=== PATIENT | male | born 1940 | race Caucasian/White ===

== ENCOUNTER 2017-03-27 10:23 | Observation (INO) | payer MEDICARE, OTHER ==
[2017-03-27] MEDS ORDERED: Aspirin Low Dose CHEW TAB* 81 MG PO ONE (10:29)
--- NOTE | 2017-03-27 11:24 | RAD ---
INDICATION: Chest pain. COMPARISON: There are no prior studies available for comparison. TECHNIQUE: A portable view of the chest was obtained. FINDINGS: Cardiac and mediastinal contours appear to be within normal limits. The lungs are hyperinflated and clear. No pleural effusion is seen. IMPRESSION: NO EVIDENCE FOR ACUTE DISEASE.
[2017-03-27 11:25] LABS: Hematocrit 51 % (42-52); Hemoglobin 16.7 g/dl (14.0-18.0); Mean Corpuscular HGB Conc 33 g/dl (31-36); Mean Corpuscular Hemoglobin 28 pg (27-31); Mean Corpuscular Volume 86 fL (80-94); Mean Platelet Volume 10 um3 (7.4-10.4); Red Cell Distribution Width 13 % (10.5-15); White Blood Count 11.8 10^3/ul (3.5-10.8)
[2017-03-27 11:37] LABS: Albumin 4.7 g/dL (3.2-5.2); BUN/Creatinine Ratio 14.8 (8-20); Calcium 10.1 mg/dL (8.6-10.3); EGFR African American 79.5 (>60); EGFR Non-African American 61.8 (>60); Globulin 2.8 g/dL (2-4); Potassium 4.7 mmol/L (3.5-5.0); Total Bilirubin 1.4 mg/dL (0.2-1.0); Total Protein 7.5 g/dL (6.4-8.9)
[2017-03-27 11:49] LABS: Troponin I 0.06 ng/mL (<0.04)
[2017-03-27 12:12] LABS: T4 7.92 mcg/mL (6.09-12.23)
[2017-03-27 12:13] LABS: TSH (Thyroid Stimulating Horm) 1.58 mcIU/mL (0.34-5.60)
[2017-03-27] MEDS ORDERED: NS 0.9% 1000 ML* 1,000 ML IV ONE (12:26)
[2017-03-27] MEDS ORDERED: oxyCODONE/Acetamin 5/325 MG* TAB PO PRN (12:27)
[2017-03-27] MEDS ORDERED: Acetaminophen TAB* 325 MG PO PRN (12:27)
[2017-03-27 14:59] LABS: Troponin I 0.26 ng/mL (<0.04)
--- NOTE | 2017-03-27 15:47 | HP ---
CC: Dr. Hernandez * HISTORY AND PHYSICAL: DATE OF ADMISSION: 03/27/17 PRIMARY CARE PROVIDER: Dr. Hernandez. CHIEF COMPLAINT: Near syncope. 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 Today, the patient was running a competitive race of 5 km. 3 km into it, he noticed the heart rate on his heart monitor that he usually wears went up from 170s to 225. He did not feel anything out of ordinary, but because of the concerns of high heart rate, he decided to stop running and he walked the remaining kilometer and a half. The last half kilometer or so, he "trotted" to the finish. He stated that he did not feel shortness of breath, chest pain, palpitations. He did not feel dizzy until he actually finished the race and he felt that he was lightheaded and he felt like he needed to hold onto someone that lasted for about a minute and then resolved. He presented to the emergency department where he was noted to be in sinus tachycardia. His lactic acid was elevated at 3.2. His troponin was 0.06. His EKG showed right bundle branch block. There is no known EKG changes according to the patient's medical history and no EKG available for comparison. He is going to be placed on overnight observation with a diagnosis of near syncope with exercise. PAST MEDICAL HISTORY: 1. Hypertension. 2. Dyslipidemia. MEDICATIONS: Include: 1. Pravachol 20 mg daily. 2. Hydrochlorothiazide 12.5 mg daily. The patient does not take it every day. 3. Naproxen 220 mg on a p.r.n. basis. ALLERGIES: No known drug allergies. FAMILY HISTORY: Positive for mother with history of smoking and alcoholism who of complications of emphysema at the age of 62. Father of lung cancer at the age of 64. He also had a history of smoking. SOCIAL HISTORY: The patient has a history of smoking for 5 years total in his 30s. He drinks an occasional beer. He denies any drug use. He is retired. He lives in an independent living part of [facility] for the past 1 year. His surrogate is his . 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 REVIEW OF SYSTEMS: Please see history of present illness. In addition to the above mentioned, patient has not had any problems with exercise intolerance. He stated that yesterday he went out to dinner with his friends and he did have one beer and had salty and "greasy peanuts." He stated that today in the morning, he felt that his legs were cramping and he took a baby aspirin due to that. All the remaining 14 systems were reviewed with the patient and were otherwise negative. PHYSICAL EXAMINATION GENERAL: This is a very pleasant 76-year-old male who is in no acute distress. Alert, awake, and oriented x3. VITAL SIGNS: Blood pressure of 138/85, heart rate of 77 and regular, respiratory rate 22, oxygen saturation 97% on room air, temperature of 98.1. HEENT: Head is atraumatic, normocephalic. Eyes: Pupils equal and reactive to light and accommodation. Oropharynx clear. Mucosa moist. NECK: Supple. No JVD. No bruits bilaterally. RESPIRATORY: Clear to auscultation bilaterally. CARDIOVASCULAR: Regular rate and rhythm. No murmur. ABDOMEN: Soft, nontender. Bowel sounds present in all 4 quadrants. EXTREMITIES: There is no edema. Pulses +2 bilaterally. No clubbing or cyanosis. NEUROLOGIC EVALUATION: Speech clear. Cranial nerves II through XII grossly intact. Motor strength is 5/5 bilaterally. PSYCHIATRIC EVALUATION: Oriented x3 with no evidence of anxiety or depression. LABORATORY DATA: Showed sodium of 137, potassium 3.7, chloride 102, carbon dioxide 27, BUN 17, creatinine 1.15. Liver function tests were unremarkable apart from total bilirubin of 1.4. Lactic acid was 3.2. Troponin of 0.06. TSH of 1.58. Brain natriuretic peptide was 53. CBC: White blood cell count of 11.8, hemoglobin 16.7, hematocrit of 51, and platelets of 131. The patient's EKG showed right bundle branch block and no old EKG available for comparison. Portable chest x-ray, impression: "No evidence of acute disease." D-dimer is ordered and pending at the time of dictation. ASSESSMENT AND PLAN: 1. Increased heart rate with exercise in a patient who is a marathon runner. The patient also felt lightheaded after he finished his run. At this point, the differential includes angina versus arrhythmia versus pulmonary embolism. In regards to evaluation for pulmonary embolism, D-dimer is going to be obtained. Pulmonary embolism is lowest on differential. In regards to possibility of arrhythmia, the patient is going to be placed on overnight observation on intermission coordinator bed. To rule out coronary artery disease, the patient's troponins are going to be followed. His initial troponin is 0.06, but the patient also appears mildly dehydrated with elevated lactic acid. I will follow up his troponins, place him on aspirin on a daily basis. The patient took an aspirin in the morning today at home. The patient also is going to undergo Myoview stress test in the morning. 2. For DVT prophylaxis, the patient is going to be placed on heparin subcutaneously. 3. In regards to history of hypertension, his hydrochlorothiazide is going to be held for the time being. 4. In regards to his hyperlipidemia, lipid profile is going to be obtained in the morning. 5. His elevated lactic acid is most likely related to dehydration. I will repeat it after a liter of intravenous hydration today. 6. The patient's code status is full and his surrogate is his . TIME SPENT: Approximately 72 minutes was spent on admission of this patient, more than half that time was spent [id number] with the patient during the interview, physical exam and counseling. [id number]/[facility] #: [id number] KRYSTA
[2017-03-27 16:49] LABS: Potassium 3.9 mmol/L (3.5-5.0)
[2017-03-27] MEDS: Heparin VIAL(*) 5000 UNITS/ML VIAL (FIVE THOUSAND) SUBCUT SCH ×2 (17:00→20:48)
--- NOTE | 2017-03-27 17:03 | ECHO ---
Patient: SANIA RICH [facility] Rec#: [id number] : 1940 Date: 03/27/2017 Age: 76y Height: 175.26 cm / 69.0 in Weight: 66.22 kg / 145.9 lbs Sex: M BSA: 1.81 Room#: 444 1 Admit Date#: 03/27/2017 Type: Inpatient Referring: Lyly Torres MD Reading: Johnathon Carney MD Identification And Records Commander: Jo-Ann Rodriguez,TRACECS,RDMS CC: Rafael Hernandez MD Transthoracic Echocardiogram Indication: Syncope BP: 140/84 HR: 92 Rhythm: NSR Findings History: HTN, HLD Technical Comments: The study quality is fair. Completed 1620 Left Ventricle: The left ventricular chamber size is normal. Mild concentric left ventricular hypertrophy is observed. There is increased basal septal hypertrophy noted without evidence of an increased gradient across the left ventricular outflow tract. Global left ventricular wall motion and contractility are within normal limits. The estimated ejection fraction is 60-65%. There is an E to A reversal in the mitral valve flow pattern suggestive of diastolic dysfunction. Left Atrium: The left atrial chamber size is normal. Right Ventricle: The right ventricular chamber size and systolic function are within normal limits. The right ventricle wall thickness is mildly increased. Right Atrium: The right atrial cavity size is normal. Aortic Valve: The aortic valve is trileaflet. The aortic valve leaflets are mildly thickened. Mild aortic cusp sclerosis is present. There is a trace of aortic regurgitation. There is no evidence of aortic stenosis. Mitral Valve: The mitral valve leaflets are mildly thickened. There is mild mitral regurgitation. The mitral regurgitant jet is posteriorly directed. There is no evidence of mitral stenosis. Tricuspid Valve: The tricuspid valve leaflets are normal. There is trace tricuspid regurgitation. Unable to estimate the right ventricular systolic pressure. Pulmonic Valve: The pulmonic valve appears normal. There is a trace pulmonic regurgitation. There is no pulmonic stenosis. Pericardium: There is no significant pericardial effusion. Aorta: The aortic root appears normal. There is no dilatation of the aortic arch. Pulmonary Artery: The main pulmonary artery is not well visualized. Venous: The inferior vena cava appears normal in size. There is a greater than 50% respiratory change in the inferior vena cava dimension. Summary: There was not any prior study for comparison. Conclusions Mild concentric left ventricular hypertrophy is observed. Sigmoid septum without obstruction. The estimated ejection fraction is 60-65%. There is an E to A reversal in the mitral valve flow pattern suggestive of diastolic dysfunction. The aortic valve leaflets are mildly thickened. The mitral valve leaflets are mildly thickened. There is mild mitral regurgitation. There is trace tricuspid regurgitation. Measurements Name Value Normal Range RVIDd (AP) 2D 3.4 cm (0.9 - 2.6) RVDdMajor (2D) 3.2 cm (2.2 - 4.4) RAd ISD 4CH 4.6 cm (3.4 - 4.9) RA (A4C)W 3.8 cm (2.9 - 4.6) IVSd (2D) 1.5 cm (0.6 - 1) LVPWd (2D) 1.2 cm (0.6 - 1) LVIDd (2D) 3.6 cm (3.6 - 5.4) LVIDs (2D) 2.9 cm - LV FS (2D) 20 % (25 - 45) Aortic Annulus 2.2 cm (1.4 - 2.6) Ao root diameter (2D) 3.1 cm (2.1 - 3.5) Ascending Ao 2.5 cm (2.1 - 3.4) Aortic arch 3.4 cm (1.8 - 3.4) LA dimension (AP) 2D 3.4 cm (2.3 - 3.8) LAd ISD 4CH 4.5 cm (2.9 - 5.3) LA ISD 4CH W 4.1 cm (2.5 - 4.5) Name Value Normal Range LA ESV SP 4CH (A/L) 44.95 ml - LA ESV SP 2CH (A/L) 38.27 ml - LA ESV BP (A/L) 42.58 ml - LA ESV BP (A/L) index 23.5 ml/m2 - LA ESV SP 4CH (MOD) 41.64 ml - LA ESV SP 2CH (MOD) 35.18 ml - Name Value Normal Range MV E-wave Vmax 0.5 m/sec - MV deceleration time 95 msec - MV A-wave Vmax 0.8 m/sec - MV E:A ratio 0.6 ratio - LV lateral e' Vmax 0.07 m/sec - LV E:e' lateral ratio 7.1 ratio - Name Value Normal Range AV Vmax 1.3 m/sec - AV VTI 21.9 cm - AV peak gradient 7 mmHg - AV mean gradient 4 mmHg - LVOT Vmax 0.7 m/sec - LVOT VTI 11 cm - LVOT peak gradient 2 mmHg - LVOT mean gradient 0.8 mmHg - ADAMS Vmax 0.6 m/sec - Name Value Normal Range RAP 8 mmHg - IVC diameter 1.8 cm - Name Value Normal Range PV Vmax 1 m/sec - PV peak gradient 4 mmHg -
--- NOTE | 2017-03-27 17:42 | CONS ---
CC: Dr. Hernandez * CARDIOLOGY CONSULTATION: DATE OF CONSULT: 03/27/17 PATIENT OF: Dr. Hernandez. REASON FOR EVALUATION: Tachycardia, lightheadedness, abnormal troponins. REQUESTING PHYSICIAN: Lyly Torres MD. HISTORY OF PRESENT ILLNESS: This is a very pleasant 76-year-old gentleman who is fairly fit and exercised regularly, has a history of hyperlipidemia and mildly elevated blood pressures for which he takes hydrochlorothiazide, perhaps once or twice a week. He is an avid runner and runs 20 to 25 miles a week, usually running 5K most days. He had been doing that for the last 5 or 6 years. He says on occasion, perhaps once every few months he would notice that his heart rate monitor would show a heart rate of 220 transiently after exercise without associated symptoms, would last a few seconds and resolve. Today, he ran a 5K race which was a little more competitive for him than his usual run. He said that last night he had a beer and peanuts which is unusual for him, usually has 1 beer couple of times a week, but he had a beer and then had 2 large cups of coffee yesterday which is unusual for him. He said that he also this morning decided to take his hydrochlorothiazide because his blood pressure was 136 at home. He said he ran the 5K and ran for about 2 miles when he noticed that his heart rate monitor initially said 170. Usually, he runs in the 150s to 170s. It went to 170 and then he noticed it went to the 220s. He said he stopped and he did not have any associated lightheadedness, chest pain, or shortness of breath. He walked for 10 to 15 paces, but it persisted. Because it persisted, he decided to walk for about the half mile and then towards the end of the race, he felt like he should jog in to try to finish ahead of a couple of people who were running, so he jogged the last few feet to the finish line and was standing and talking to people when suddenly he felt mildly lightheaded and asked to lean on a friend. The friend said he did not look well and asked him to call the emergency physician. By this time, he had turned off his heart rate monitor. He said that he thought it was in the 120s to 140s after the race. The emergency physician came over and obtained an EKG at approximately 9:37 which revealed what appeared to be AFib with rapid ventricular response, approximately 120s. He subsequently had a repeat EKG at 10:18 which showed sinus rhythm with a right bundle branch block and there was an EKG at 10:08 which also showed what appeared to be sinus rhythm. His EKG at the hospital showed sinus rhythm with a right bundle branch block and that was at approximately 10:27. The patient said that after he felt lightheaded, he sat in a chair for about 2 minutes and felt better and initially declined EMT evaluation or going to the hospital. However, he has been in the hospital. He has received IV fluids. His initial electrolytes revealed a mildly elevated white count at 11.8, potassium of 4.7, lactic acid elevated at 3.2, glucose of 103. The subsequent lactic acid at 1429 was 1.5. Troponin was 0.06 initially and went to 0.26 at 1429. He denies any previous cardiac history. No murmurs or palpitations. No TIA symptoms. No hematemesis or hematochezia. No fevers, chills, or sweats recently. He says he drinks about 2 beers a week. Deinies sxs suggestive of sleep apnea ; denies snoring. PAST MEDICAL HISTORY: Includes: 1. Hyperlipidemia. 2. Borderline hypertension. 3. He has a history of tobacco use, discontinued at 67. 4. He has a history of BPH and has nocturia 1 to 5 times a night. PAST SURGICAL HISTORY: Includes: 1. Prostate biopsy. 2. Melanoma removed 25 years ago. 3. Dysplastic nevi removed. MEDICATIONS: His only medication is pravastatin 20 mg a day. ALLERGIES: He has no known allergies. FAMILY HISTORY: He has 2 brothers, one who was born to an alcoholic mother and had congenital heart disease, other brother is alive and well. His mother at 59 with complications of alcoholism. Father at 64 with complications of alcoholism, tobacco use, and lung cancer. 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 He spent several years in [facility] and moved back here in approximately 2009. He is , has no children. He denies snoring or sleep apnea type symptoms. REVIEW OF SYSTEMS: Review of systems x10 was negative except as above. PHYSICAL EXAM: He is a well-developed, well-nourished athletic and thin- appearing gentleman in no apparent distress. He claims his weight is 149. Blood pressure 140/84, heart rate of 78. He reports that his heart rate at rest first thing in the morning is in the range of 47 and when he goes to [facility] and checks his blood pressure, it is is usually 57. No significant JVD. Carotids 2+. No cervical adenopathy. No thyromegaly. Extraocular muscles intact. Sclerae anicteric. Cardiac Exam: S1, S2 with a soft 1 to 2 over 6 systolic ejection murmur at the base and a click and mid to late systolic murmur 2/6 at the left lower sternal border and apex. Chest was clear. No CVAT. Abdomen: Bowel sounds present. Nontender. No hepatosplenomegaly. Femoral pulses intact without bruits. Distal pulses intact. No edema. Motor strength 5/5 bilaterally. Deep tendon reflexes 2/4. Alert and oriented x3. DIAGNOSTIC STUDIES/LAB DATA: EKG: Normal sinus rhythm, right bundle branch block. Labs were discussed above. Chest x-ray report: No evidence for acute disease. IMPRESSION: Mr. Mcgarry had an episode of lightheadedness after a race associated with incidentally noted elevated heart rates on his wrist monitor as well as what appears to be possible atrial fibrillation shortly after recovery. He also has had a mild bump in his troponins and he had a lactic acidosis after the race. The etiology of his arrhythmia and symptoms is unclear. It is unclear whether he had an ischemic event or whether he had an atrioventricular arrhythmia when he was running and I explained that to him and his at the bedside. We did discuss the potential for him to develop atrial fibrillation and given his age and his athleticism and resting bradycardia, we also discussed potential contributions of dehydration, excessive exertion, hypokalemia, and alcohol and caffeine. For the time being, I would recommend the followin. He is to be observed overnight. 2. We would replace his electrolytes as you are doing. 3. Would trend his troponins and follow his EKGs. 4. If his troponins remain relatively stable, we could consider evaluation for ischemic heart disease and arrhythmia with a stress nuclear. 5. If he has recurrent symptoms, EKG changes, or ventricular tachycardia, we will consider catheterization. 6. I did explain to him that given his age, he should avoid excessive exertion , competitive races which may put him at risk for atrial or ventricular arrhythmias and myocardial injury. 7. We also will need to consider his risk for cardioembolic events. His CHADS - VASc2 score is 3. Given his age and hypertension, he should consider anticoagulation to decrease the risk of cardioembolic events in the future. [id number]/[facility] #: [id number] KRYSTA
[2017-03-27] MEDS ORDERED: Atorvastatin* 10 MG TAB PO SCH (21:00)
[2017-03-28] MEDS: Heparin VIAL(*) 5000 UNITS/ML VIAL (FIVE THOUSAND) SUBCUT SCH (05:13)
[2017-03-28 06:02] LABS: Hematocrit 42 % (42-52); Hemoglobin 14.2 g/dl (14.0-18.0); Mean Corpuscular HGB Conc 34 g/dl (31-36); Mean Corpuscular Hemoglobin 29 pg (27-31); Mean Corpuscular Volume 85 fL (80-94); Mean Platelet Volume 11 um3 (7.4-10.4); Red Blood Count 4.98 10^6/ul (4.0-5.4); Red Cell Distribution Width 13 % (10.5-15); White Blood Count 5.7 10^3/ul (3.5-10.8)
[2017-03-28 06:26] LABS: BUN/Creatinine Ratio 16.3 (8-20); Calcium 9.2 mg/dL (8.6-10.3); EGFR African American 95.6 (>60); EGFR Non-African American 74.4 (>60); Potassium 3.7 mmol/L (3.5-5.0)
[2017-03-28] MEDS ORDERED: Potassium Chloride LIQUID* 20 MEQ PACKET PO ONE (08:00)
[2017-03-28 08:05] LABS: Troponin I 0.16 ng/mL (<0.04)
[2017-03-28] MEDS ORDERED: Aspirin TAB* 325 MG PO SCH (09:00)
[2017-03-28] MEDS ORDERED: amLODIPine TAB* 5 MG ONE (12:56)
[2017-03-28] MEDS ORDERED: hydrALAZINE IV* 20 MG/ML VIAL ONE (13:13)
--- NOTE | 2017-03-28 14:49 | RAD ---
Indication: Syncope. Myocardial perfusion scan was performed utilizing 1 day protocol. 10.2 mCi of technetium 99m tetrofosmin was injected for the rest portion of the study. Treadmill stress study was performed and the maximum heart rate achieved was 100% of the maximum predicted value. 25.5 mCi of technetium 99m Myoview was then injected. There is homogeneous distribution of the radiotracer throughout the left ventricle. There is no evidence of any fixed or reversible perfusion defect identified. The ejection fraction at stress is 56%. Evaluation of wall motion demonstrates no focal wall motion abnormality. IMPRESSION: No evidence of fixed or reversible perfusion defect is identified. Normal ejection fraction with no focal wall motion abnormality. ASSESSMENT: Low risk Based on imaging criteria from ACC/AHA 2002 Guideline Update for the Management of Patients With Chronic Stable Angina Table 23. Noninvasive Risk Stratification.
[2017-03-28] MEDS ORDERED: Metoprolol Tartrate IV* 1 MG/ML 5 ML VIAL ONE (15:24)
[2017-03-28 15:43] VITALS: BP 159/75
--- NOTE | 2017-03-28 17:47 | ED ---
Mackenzie Roth Edward, scribed for Dimas Montes MD on 03/27/17 at 1034 . Dizziness - HPI Summary HPI Summary: 76 y/o male presents to ED c/o palpitations characterized as fast and lightheadedness. Patient was in the middle of running a 5K when he felt his HR increase - immediately self-measured to be 227. Tachycardia not alleviated by walking it off during race. 3 minutes after the race, patient c/o lightheadedness and dizziness, which was resolved by sitting down. Patient also had leg cramps last night. Denies SOB, CP, diaphoresis or any N/V. Patient states he did not drink much yesterday, and had a bottle of water this morning. PMHx HTN, high cholesterol. No previous TN's. PCP Dr. Dimas. - History Of Current Complaint Chief Complaint: EDDizziness Stated Complaint: CHEST PAIN Time Seen by Provider: 03/27/17 10:29 Hx Obtained From: Patient Onset/Duration: Resolved Timing: Minutes Character: Lightheaded Aggravating Factor(s): Nothing Alleviating Factor(s): Other - Walking it off lowered heart rate slightly Associated Signs And Symptoms: Negative: Nausea, Vomiting, Diaphoresis, Chest Pain, SOB, Fever - Risk Factors Cardiac Risk Factors: Hypertension CVA Risk Factor: Hypertension - Allergies/Home Medications Allergies/Adverse Reactions: Allergies Allergy/AdvReac Type Severity Reaction Status Date / Time No Known Allergies Allergy Verified 02/10/14 15:31 Home Medications: Home Medications Naproxen Sodium [Naproxen Sodium 220 mg cap] 220 mg PO Q6HR PRN 03/27/17 [ History Confirmed 03/27/17] Pravastatin (NF) [Pravachol (NF)] 20 mg PO DAILY 03/27/17 [History Confirmed ] PMH/Surg Hx/FS Hx/Imm Hx Previously Healthy: Yes Cardiovascular History: Reports: Hx Hypercholesterolemia, Hx Hypertension Denies: Hx Myocardial Infarction Infectious Disease History: Denies: Traveled Outside the [place] in Last 30 Days - Family History Known Family History: Positive: Hypertension - Mother, Diabetes - Grandfather, Other - Parents of EtOH and Smoking - Social History Occupation: Retired Lives: With Family Alcohol Use: Occasionally - Half a beer a day Hx Substance Use: No Substance Use Type: Reports: None Hx Tobacco Use: Yes Smoking Status (MU): Former Smoker - Quit in 1975 Type: Cigarettes Review of Systems Constitutional: Negative Negative: Skin Diaphoresis Eyes: Negative ENT: Negative Positive: Other - Tachycardic (pt measured 220s). Negative: Chest Pain Respiratory: Negative Negative: Shortness Of Breath Gastrointestinal: Negative Negative: Vomiting, Nausea Genitourinary: Negative Musculoskeletal: Negative Skin: Negative Neurological: Other - Lightheaded and dizzy Psychological: Normal All Other Systems Reviewed And Are Negative: Yes Physical Exam - Summary Physical Exam Summary: VITAL SIGNS:~Reviewed. GENERAL:~~Patient is a well-developed and nourished male who is lying comfortable in the stretcher. ~Patient is not in any acute respiratory distress. HEAD AND FACE:~No signs of trauma.~~No ecchymosis, hematomas or skull depressions.~No sinus tenderness. EYES:~PERRLA, EOMI x 2, No injected conjunctiva, no nystagmus. No photophobia. EARS:~Hearing grossly intact. Ear canals and tympanic membranes are within normal limits. MOUTH:~Oropharynx within normal limits. NECK:~Supple, trachea is midline, no adenopathy, no JVD, no carotid bruit, no c- spine tenderness, neck with full ROM. No meningeal signs, no Kernig's or brudzinskis signs. CHEST:~Symmetric, no tenderness at palpation LUNGS:~Clear to auscultation bilaterally. No wheezing or crackles. CVS:~ Tachycardic, regular rhythm, S1 and S2 present, no murmurs or gallops appreciated. ABDOMEN:~Soft, non-tender. No signs of distention. No rebound no guarding, and no masses palpated. Bowel sounds are normal. EXTREMITIES:~FROM in all major joints, no edema, no cyanosis or clubbing. NEURO:~Alert and oriented x 3. No acute neurological deficits. Speech is normal and follows commands. SKIN:~Dry and warm Triage Information Reviewed: Yes Vital Signs On Initial Exam: Initial Vitals BP 169/94 03/27/17 10:27 Vital Signs Reviewed: Yes Diagnostics - Vital Signs Vital Signs Temp Pulse Resp BP Pulse Ox 03/27/17 12:00 76 21 142/79 98 03/27/17 11:30 77 17 154/85 97 03/27/17 11:00 15 161/101 03/27/17 10:30 98.1 F 111 15 169/94 99 03/27/17 10:28 112 17 98 03/27/17 10:27 169/94 - Laboratory Lab Results: Lab Results 03/27/17 03/27/17 03/27/17 Range/Units 11:07 11:07 11:07 WBC 11.8 H (3.5-10.8) 10^3/ul RBC 5.90 H (4.0-5.4) 10^6/ul Hgb 16.7 (14.0-18.0) g/dl Hct 51 (42-52) % MCV 86 (80-94) fL MCH 28 (27-31) pg MCHC 33 (31-36) g/dl RDW 13 (10.5-15) % Plt Count 131 L (150-450) 10^3/ul MPV 10 (7.4-10.4) um3 Neut % (Auto) 87.0 H (38-83) % Lymph % (Auto) 5.2 L (25-47) % Hettinger % (Auto) 6.9 (1-9) % Eos % (Auto) 0.4 (0-6) % Baso % (Auto) 0.5 (0-2) % Absolute Neuts (auto) 10.3 H (1.5-7.7) 10^3/ul Absolute Lymphs (auto) 0.6 L (1.0-4.8) 10^3/ul Absolute Monos (auto) 0.8 (0-0.8) 10^3/ul Absolute Eos (auto) 0 (0-0.6) 10^3/ul Absolute Basos (auto) 0.1 (0-0.2) 10^3/ul Absolute Nucleated RBC 0.05 10^3/ul Nucleated RBC % 0.4 D-Dimer, Quantitative (Less Than 230) ng/mL Sodium 137 (133-145) mmol/L Potassium 4.7 (3.5-5.0) mmol/L Chloride 102 (101-111) mmol/L Carbon Dioxide 27 (22-32) mmol/L Anion Gap 8 (2-11) mmol/L BUN 17 (6-24) mg/dL Creatinine 1.15 (0.67-1.17) mg/dL Est GFR ( Amer) 79.5 (>60) Est GFR (Non-Af Amer) 61.8 (>60) BUN/Creatinine Ratio 14.8 (8-20) Glucose 103 H (70-100) mg/dL Lactic Acid 3.2 H* (0.5-2.0) mmol/L Calcium 10.1 (8.6-10.3) mg/dL Magnesium 2.0 (1.9-2.7) mg/dL Total Bilirubin 1.40 H (0.2-1.0) mg/dL AST 31 (13-39) U/L ALT 25 (7-52) U/L Alkaline Phosphatase 79 (34-104) U/L Total Creatine Kinase 162 (10-223) U/L CK-MB (CK-2) 8.1 H (0.6-6.3) ng/mL Troponin I 0.06 H* (<0.04) ng/mL B-Natriuretic Peptide ( - 100) pg/mL Total Protein 7.5 (6.4-8.9) g/dL Albumin 4.7 (3.2-5.2) g/dL Globulin 2.8 (2-4) g/dL Albumin/Globulin Ratio 1.7 (1-3) TSH 1.58 (0.34-5.60) mcIU/mL Thyroxine (T4) 7.92 (6.09-12.23) mcg/mL 03/27/17 03/27/17 Range/Units 11:07 11:07 WBC (3.5-10.8) 10^3/ul RBC (4.0-5.4) 10^6/ul Hgb (14.0-18.0) g/dl Hct (42-52) % MCV (80-94) fL MCH (27-31) pg MCHC (31-36) g/dl RDW (10.5-15) % Plt Count (150-450) 10^3/ul MPV (7.4-10.4) um3 Neut % (Auto) (38-83) % Lymph % (Auto) (25-47) % Hettinger % (Auto) (1-9) % Eos % (Auto) (0-6) % Baso % (Auto) (0-2) % Absolute Neuts (auto) (1.5-7.7) 10^3/ul Absolute Lymphs (auto) (1.0-4.8) 10^3/ul Absolute Monos (auto) (0-0.8) 10^3/ul Absolute Eos (auto) (0-0.6) 10^3/ul Absolute Basos (auto) (0-0.2) 10^3/ul Absolute Nucleated RBC 10^3/ul Nucleated RBC % D-Dimer, Quantitative < 200 (Less Than 230) ng/mL Sodium (133-145) mmol/L Potassium (3.5-5.0) mmol/L Chloride (101-111) mmol/L Carbon Dioxide (22-32) mmol/L Anion Gap (2-11) mmol/L BUN (6-24) mg/dL Creatinine (0.67-1.17) mg/dL Est GFR ( Amer) (>60) Est GFR (Non-Af Amer) (>60) BUN/Creatinine Ratio (8-20) Glucose (70-100) mg/dL Lactic Acid (0.5-2.0) mmol/L Calcium (8.6-10.3) mg/dL Magnesium (1.9-2.7) mg/dL Total Bilirubin (0.2-1.0) mg/dL AST (13-39) U/L ALT (7-52) U/L Alkaline Phosphatase (34-104) U/L Total Creatine Kinase (10-223) U/L CK-MB (CK-2) (0.6-6.3) ng/mL Troponin I (<0.04) ng/mL B-Natriuretic Peptide 53 ( - 100) pg/mL Total Protein (6.4-8.9) g/dL Albumin (3.2-5.2) g/dL Globulin (2-4) g/dL Albumin/Globulin Ratio (1-3) TSH (0.34-5.60) mcIU/mL Thyroxine (T4) (6.09-12.23) mcg/mL Result Diagrams: 03/28/17 04:45 03/28/17 04:45 Lab Statement: Any lab studies that have been ordered have been reviewed, and results considered in the medical decision making process. - Radiology CHEST XRAY Xray Interpretation: No Acute Changes - No evidence for acute disease. Radiology Interpretation Completed By: Radiologist - EKG 1 EKG Interpretation: 10:27 - Sinus tachycardia @ 108 bpm, RBBB Dizzy Course/Dx - Course Assessment/Plan: 76 y/o male presents to ED c/o tachycardia and lightheadedness. Patient was in the middle of running a 5K when he felt his HR increase - immediately self-measured to be 227. Tachycardia not alleviated by walking it off during race. 3 minutes after the race, patient c/o lightheadedness and dizziness, which was resolved by sitting down. Patient also had leg cramps last night. Denies SOB, CP, diaphoresis or any N/V. Patient states he did not drink much yesterday, and had a bottle of water this morning. PMHx HTN, high cholesterol. No previous TN's. PCP Dr. Dimas. Test results are WNL except WBC 11.8, D dimer < 200, Troponin 0.08. EKG shows NSR and RBBB. CXR showed negative for acute pathology. Patient was given aspirin by EMS. Patient was asymptomatic except slight tachycardia. I discussed the case with Dr. Torres who accepted the patient for admission. At this point the patient was still hemodynamically stable and A&Ox3, with no CP or SOB. - Diagnoses Differential Diagnosis/HQI/PQRI: Dysrhythmia, Transient Ischemic Attack Provider Diagnoses: Increased troponin r/o ACS, Near syncope, Dizziness - Provider Notifications Discussed Care Of Patient With: Lyly Torres - Agree to admit. Time Discussed With Above Provider: 12:20 Discharge - Discharge Plan Condition: Stable Disposition: ADMITTED TO [facility] documentation as recorded by the Mackenzie sims Edward accurately reflects the service I personally performed and the decisions made by me, Dimas Montes MD.
--- NOTE | 2017-03-28 22:12 | DS ---
CC: Dr. Hernandez; Dr. Carney * DISCHARGE SUMMARY: DATE OF ADMISSION: 03/27/17 DATE OF DISCHARGE: 03/28/17 PRIMARY CARE PROVIDER: Dr. Hernandez. DISCHARGE DIAGNOSES: 1. Elevated troponin, most likely due to demand ischemia due to strenuous exercise. 2. An episode of atrial fibrillation when running a marathon SECONDARY DIAGNOSES: 1. History of hypertension. 2. Dyslipidemia. LABORATORY DATA AND STUDIES PERFORMED DURING THE HOSPITAL STAY: Included, on , white blood cell count of 5.7, hemoglobin of 14.2, hematocrit of 42, and platelets of 124. Sodium was 139, potassium 3.7, chloride 105, carbon dioxide 27, BUN 16, creatinine 0.98. Lipid profile showed triglycerides of 96, cholesterol total of 171, LDL of 99, and HDL of 53. Troponin peaked at 0.33 during the hospital stay. The patient's TSH on admission was 1.58. Transthoracic echocardiogram obtained on 03/27/17 showed EF of 60% to 65% with mild concentric LVH with sigmoid septum without obstruction. Flow pattern suggestive of diastolic dysfunction. There was mild mitral regurgitation and trace tricuspid regurgitation. Nuclear medicine cardiac stress test documented on the day of discharge showed low risk. There was no evidence of fixed or reversal perfusion defect that was identified. The EF was noted to be 56%. CONSULTATIONS DURING THE HOSPITAL STAY: Included Dr. Carney from Cardiology. 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 The patient really did not experience any symptoms until he finished his marathon and then he felt somewhat unsteady, dizzy, and weak. From the review of medical records and that was not included in the history and physical, it was noted that the patient actually had initial telemetry strips performed by the ambulance crew, was noted to have atrial fibrillation. The patient spontaneously converted to sinus rhythm. It was also questioned by Dr. Carney as the patient could have had a different arrhythmia during his marathon when his heart rate was above 200. The patient did not complain of chest pain or shortness of breath, but his troponin mushtaq to 0.33 at its peak. Subsequently, Dr. Carney saw the patient in consultation and recommended cardiac stress test, which was noted to have low risk and normal EF. At this point, the most likely explanation for the patient's elevated troponin is demand ischemia due to extreme exercise. The patient also was educated about this that his CHADS-VASc score is 3 and he should be placed on anticoagulation for cardioembolic stroke prevention, due to this that he had an episode of atrial fibrillation. The patient is aware of his stroke risk, but he prefers to be placed only on aspirin, due to his history of being very physically active and frequent trauma due to that. The patient is being discharged home with recommendation to follow up with Dr. Hernandez in approximately a week and follow up with Dr. Carney in approximately a month. Dr. Carney is planning to set up an outpatient blood pressure monitoring and outpatient event monitoring approximately 1 month after patient' s discharge. Physical exam at discharge is unchanged from admission. Please note this is a short summary of the patient's hospital stay. Please refer to further medical records for details. [id number]/[facility] #: [id number] KRYSTA
== END 2017-03-28 16:37 | disposition home or self-care (01) ==
LOC: ED 10:23 → MEDTELE 12:27
PROVIDERS: ADMIT Internal Medicine; ATTEND Internal Medicine
DX: R74.8 Abnormal levels of other serum enzymes (principal); I48.91 Unspecified atrial fibrillation; E78.5 Hyperlipidemia, unspecified; E87.2 Acidosis; E86.0 Dehydration; R42 Dizziness and giddiness; R94.31 Abnormal electrocardiogram [ECG] [EKG]; I45.10 Unspecified right bundle-branch block; I51.7 Cardiomegaly; I34.0 Nonrheumatic mitral (valve) insufficiency; Z79.899 Other long term (current) drug therapy
CPT/HCPCS: 36415; 71010; 78452; 80048; 80053; 80061; 82550; 82553; 83605; 83735; 83880; 84132; 84436; 84443; 84484; 85025; 85379; 93005; 93017; 93306; 96360; 99284; A9270-GY; A9502; G0378; J0360; J1644

== ENCOUNTER 2024-08-12 15:57 | Observation (INO) ==
[2024-08-12 16:50] LABS: INR 1.13 (0.85-1.14)
[2024-08-12 16:53] LABS: Hematocrit 43.8 % (38-53); Hemoglobin 14.7 g/dL (13.2-16.3); Mean Corpuscular Hemoglobin 28.6 pg (27-33); Mean Corpuscular Hgb Conc 33.6 g/dL (31-36); Mean Corpuscular Volume 85.2 fL (80-97); Red Blood Count 5.14 10^6/uL (4.06-5.63); Red Cell Distribution Width 14.3 % (12-17); White Blood Count 8.1 10^3/uL (3.6-10.2)
[2024-08-12 17:20] LABS: Albumin 3.9 g/dL (3.2-5.2); Albumin/Globulin Ratio 1.8 (1-3); Calcium 9.3 mg/dL (8.6-10.3); Creatinine, Serum 1.16 mg/dL (0.67-1.17); Globulin 2.2 g/dL (2-4); Potassium 4.6 mmol/L (3.5-5.0); Total Bilirubin 1.6 mg/dL (0.2-1.0); Total Protein 6.1 g/dL (6.4-8.9); eGFR CKD-EPI 62.5 (>60)
[2024-08-12 17:43] LABS: ABS Basophils 0.1 10^3/uL (0.0-0.1); ABS Eosinophils 0.1 10^3/uL (0.0-0.5); ABS Lymphocytes 1.2 10^3/uL (1.0-4.8); ABS Monocytes 0.9 10^3/uL (0.0-1.1); ABS Neutrophils 5.8 10^3/uL (1.5-7.6); Eosinophil % 1.7 %; Lymphocyte % 14.7 %; Mean Platelet Volume 10.8 fL (7.5-11.2); Platelet Count 135 10^3/uL (150-450)
[2024-08-12 18:23] LABS: High Sensitivity Troponin 1 Hr 67 pg/mL (<20)
[2024-08-12 20:17] LABS: TSH Ultra Thyroid Stim Horm 1.37 mcIU/mL (0.34-5.60)
[2024-08-12] MEDS: Labetalol IV 5 MG/ML 20 ml VIAL IV PUSH ONE (20:29)
[2024-08-12] MEDS: Pravastatin 20 mg TAB (NF) PO SCH (20:30)
[2024-08-12 20:49] LABS: C Reactive Protein 6.06 mg/L (<8.01)
[2024-08-12] MEDS ORDERED: Aspirin EC 81 mg TAB.EC (enteric coated) PO SCH (21:00)
[2024-08-13 07:47] LABS: Hematocrit 42.1 % (38-53); Mean Corpuscular Hemoglobin 28.5 pg (27-33); Mean Corpuscular Hgb Conc 33.2 g/dL (31-36); Mean Corpuscular Volume 85.8 fL (80-97); Red Blood Count 4.91 10^6/uL (4.06-5.63); Red Cell Distribution Width 14.7 % (12-17); White Blood Count 8.5 10^3/uL (3.6-10.2)
[2024-08-13 08:17] LABS: Albumin 3.5 g/dL (3.2-5.2); Albumin/Globulin Ratio 1.8 (1-3); Calcium 8.9 mg/dL (8.6-10.3); Creatinine, Serum 1.14 mg/dL (0.67-1.17); Direct Bilirubin 0.3 mg/dL (0.03-0.18); Indirect Bilirubin 1.2 mg/dL (0.3-1.0); Potassium 4.5 mmol/L (3.5-5.0); Total Bilirubin 1.5 mg/dL (0.2-1.0); Total Protein 5.5 g/dL (6.4-8.9); eGFR CKD-EPI 63.8 (>60)
[2024-08-13] MEDS ORDERED: fentaNYL 100 mcg/2 ml 50 MCG/ML VIAL ONE ×2 (08:30→09:21)
[2024-08-13] MEDS ORDERED: Midazolam 5 mg/5 ml VIAL 1 mg/ml 5 ml VIAL (5 mg) ONE (08:31)
[2024-08-13] MEDS ORDERED: Flumazenil 0.5 mg/5 ml 0.1 MG/ML 5 ml VIAL ONE (08:31)
[2024-08-13] MEDS ORDERED: Naloxone 0.4 mg VIAL 0.4 mg/ml 1 ml VIAL ONE (08:31)
[2024-08-13] MEDS: fentaNYL 100 mcg/2 ml 50 MCG/ML VIAL IV SLOW PU ONE (09:51)
[2024-08-13] MEDS: Midazolam 10 mg/10 ml VIAL 1 mg/ml 10 ml VIAL (10 mg) IV SLOW PU ONE (09:52)
[2024-08-13 09:56] LABS: ABS Basophils 0.1 10^3/uL (0.0-0.1); ABS Eosinophils 0.2 10^3/uL (0.0-0.5); ABS Lymphocytes 1.1 10^3/uL (1.0-4.8); ABS Neutrophils 6.2 10^3/uL (1.5-7.6); Eosinophil % 2.1 %; Large Platelets Present; Lymphocyte % 12.6 %; Mean Platelet Volume 11.1 fL (7.5-11.2); Platelet Count 126 10^3/uL (150-450)
[2024-08-13] MEDS: Empagliflozin 25 MG TAB PO SCH (11:04)
[2024-08-13] MEDS: NS 0.9% 1000 ml BAG 1,000 ML IV ONE (11:11)
[2024-08-14 05:57] LABS: Albumin 3.2 g/dL (3.2-5.2); Albumin/Globulin Ratio 1.7 (1-3); Calcium 8.8 mg/dL (8.6-10.3); Creatinine, Serum 1.25 mg/dL (0.67-1.17); Globulin 1.9 g/dL (2-4); Potassium 4.7 mmol/L (3.5-5.0); Total Bilirubin 1.4 mg/dL (0.2-1.0); Total Protein 5.1 g/dL (6.4-8.9); eGFR CKD-EPI 57.1 (>60)
[2024-08-14] MEDS: Metoprolol Tartrate 5 mg VIAL 5 ml VIAL (1 mg/ml) IV PRN (14:46)
[2024-08-15 06:24] LABS: Calcium 8.7 mg/dL (8.6-10.3); Creatinine, Serum 1.41 mg/dL (0.67-1.17); Potassium 4.4 mmol/L (3.5-5.0); eGFR CKD-EPI 49.4 (>60)
[2024-08-15] MEDS: NS 0.9% 500 ml BAG 500 ML IV SCH (10:33)
[2024-08-15 14:31] LABS: Creatinine, Serum 1.32 mg/dL (0.67-1.17); Potassium 4.5 mmol/L (3.5-5.0); eGFR CKD-EPI 53.5 (>60)
[2024-08-16 07:06] LABS: Calcium 8.6 mg/dL (8.6-10.3); Creatinine, Serum 1.39 mg/dL (0.67-1.17); Magnesium 2.1 mg/dL (1.9-2.7); Potassium 4.7 mmol/L (3.5-5.0); eGFR CKD-EPI 50.3 (>60)
[2024-08-16] MEDS: Lactated Ringers 1000 ml BAG 1,000 ML IV SCH (10:03)
[2024-08-16 13:41] VITALS: BP 145/93
[2024-08-16 15:05] LABS: Calcium 8.8 mg/dL (8.6-10.3); Creatinine, Serum 1.3 mg/dL (0.67-1.17); Potassium 4.2 mmol/L (3.5-5.0); eGFR CKD-EPI 54.5 (>60)
== END 2024-08-16 16:07 ==
LOC: ED 15:57 → EDHOLD 15:57 → SUATTDRO 17:16 → MEDTELE 08-13 03:06
PROVIDERS: ADMIT Internal Medicine; ATTEND Student in an Organized Health Care Education/Training Program